=== PATIENT | female | born 1955 | race Caucasian/White ===

== ENCOUNTER 2021-06-12 15:50 | Outpatient (CLI) | payer OTHER, SELFPAY ==
--- NOTE | 2021-06-12 15:56 | XR_ITS ---
WS: [id number] DEXA (DUAL ENERGY X-RAY ABSORPTIOMETRY) Bone mineral density was performed using a [employer] machine. HISTORY: POST MENOPAUSAL COMPARISON: 03/21/2016 Lumbar spine BMD (L1-L4): 0.925 g/cm2 T score: -2.1 Z score: -0.5 Total hip BMD: Left: 0.629 g/cm2. T score: -3.0 Z score: -1.7 Right: 0.629 g/cm2. T score: -3.0 Z score: -1.7 10 year probability of a major osteoporotic fracture is 23%. Compared to the prior study from 03/21/2016. Lumbar spine bone mineral density has decrease by 10.5%. Bilateral hips bone mineral density has decrease by 11.0%. XR/XR DEXA axial skeleton* [id number] IMPRESSION: OSTEOPOROSIS based upon the WHO classification for females. Significant decrease in bone mineral density within the lumbar spine and hips s raheel the prior study.
== END 2021-06-12 15:51 | disposition home or self-care (01) ==
PROVIDERS: Visit Provider Family Medicine
DX: Z78.0 Asymptomatic menopausal state (principal); M81.0 Age-related osteoporosis without current pathological fracture
CPT/HCPCS: 77080